=== PATIENT | female | born 1945 | race Caucasian/White ===

== ENCOUNTER 2016-05-22 20:58 | Inpatient (IN) | payer OTHER ==
--- NOTE | ~2016-05-22 | DS ---
Discharge Summary [facility] [address] [place]. [address] NAME: ASHLEIGH HERBERT : 47 STATUS : DIS IN PAT#: [id number] AGE: 71 ADM/REG DATE : 05/22/16 MR#: [id number] REPORT SERV DATE: 05/26/16 DICTATED BY: JEROMY MARROQUIN DATE: 05/25/16 REPORT STATUS : Draft TRANSCRIBED BY: MODL DATE: 05/25/16 ADMISSION DATE: 05/22/2016 DISCHARGE DATE: 05/25/2016 DISCHARGE DIAGNOSES: 1. Symptomatic bradycardia, improved after discontinuation of beta-fer and amiodarone. 2. History of atrial fibrillation. 3. Acute kidney injury. 4. Hyperkalemia, present on admission, resolved. 5. Pneumonia, initially suspected, but ruled out. CONSULTS: Cardiology. PROCEDURES AND IMAGING: Echocardiogram performed on 05/23/2016 showed normal LV systolic function of 50%. The patient did have a mild left ventricular diastolic dysfunction. The patient had normal right RV size and systolic function. HOSPITAL COURSE: This is a 71-year-old lady with history of AFib, who has been on beta- fer and amiodarone, who was brought to the ER with symptomatic bradycardia with heart rate in the 20s. For details, please refer to excellent H and P by Dr. Ramirez. In summary, the patient was admitted to [facility] and was very closely monitored. All medications that potentially exacerbate bradycardia was held and the patient actually did very well with the heart rate improving to 50s. The patient was seen and evaluated by Cardiology. The patient had a repeat echocardiogram with the findings as above. By the third day of the hospital stay as the patient's heart rate had improved and she was asymptomatic, Cardiology had cleared the patient for discharge. On another note, however, the patient did come in with an acute kidney injury with creatinine of 2.21. More importantly, the patient had persistent hyperkalemia with potassium of 5.4. Notably at home, the patient has been on Lasix as well as potassium replacement. The patient's potassium was as high as 5.9 on the third day of the hospital stay, and thus, discharge was held and the patient was given some IV fluid hydration. The patient's renal function had improved to a creatinine of 1.69 and the patient's potassium came down to 4.4 after a dose of Kayexalate. The patient is now being discharged home with close outpatient followup instructions. DISCHARGE MEDICATIONS: 1. Discontinued Coreg, amiodarone, Lasix and potassium. Otherwise, no changes to home medications. DISPOSITION: Home. FOLLOWUP: 1. Please follow up with PCP in the next one to two weeks. 2. Please follow up with Dr. Hemphill, her primary senior lead software engineer, in the next one to two weeks. A total of 25 minutes spent in coordinating this patient's discharge today. Discharge Summary [address] [address] NAME: ASHLEIGH HERBERT : 47 STATUS : DIS IN PAT#: [id number] AGE: 71 ADM/REG DATE : 05/22/16 MR#: [id number] REPORT SERV DATE: 05/26/16 DICTATED BY: JEROMY MARROQUIN DATE: 05/25/16 REPORT STATUS : Draft TRANSCRIBED BY: LEO DATE: 05/25/16 LUCAS/LEO Jeromy Marroquin MD / [id number] CC: Jeroym Marroquin MD
--- NOTE | ~2016-05-22 | HP ---
History And Physical [facility] [address] [place]. [address] NAME: ASHLEIGH HERBERT : 47 STATUS : ADM IN [facility]#: [id number] AGE: 71 ADM/REG DATE : 05/22/16 MR#: [id number] REPORT SERV DATE: 05/23/16 DICTATED BY: DOTTIE LI DATE: 05/23/16 REPORT STATUS : Draft TRANSCRIBED BY: MODMikala DATE: 05/23/16 DATE OF ADMISSION: 05/22/2016 CHIEF COMPLAINT: A 71-year-old female presenting with lightheadedness, shortness of breath, and initially severe bradycardia. HISTORY OF PRESENT ILLNESS: The patient's history was obtained through careful interview with the patient and son coupled with review of [facility] and [facility] medical records. The patient has had problems with congestive heart failure over the last six months or so. She describes being hospitalized at [facility] both in 12/2015 and in 03/2016. She has had to be on increasing doses of Lasix. She describes an increasing congestion and cough over the last two weeks. The cough is productive of a clear thick sputum. She has noticed no lower extremity edema. No orthopnea. She does describe shortness of breath characterized by dyspnea on exertion. Over this period of time with this "cold," she has lost her voice but has no sore throat. It is in this context that over the last several days she has developed lightheadedness and orthostatic symptoms and today these symptoms became quite severe. She was at home today and she had new onset nausea and felt as if she might vomit at any moment. When she called to have an ambulance check on her, the EMS crew noted that her pulse was sustaining in the 30s and was irregular; therefore, they called a helicopter to airlift patient to [facility]. Her blood pressure remains stable through all of this. She never lost consciousness. By the time she came here in the hospital, she had initial EKG with a pulse of 36 when atrial fibrillation. While she has been evaluated here in the emergency department, the patient has had improvement in her pulse gradually into the 40s and then finally into the 50s for a sustained period of two hours with less symptoms. Earlier in the evening, she did develop a mid chest discomfort, new onset heaviness. She had had one episode like this about four or five days ago that resolved spontaneously. She describes the heaviness pain in her chest to about 6 to 7/10 severity that eventually resolved by the time she came here to the hospital. She had one loose bowel movement on the day of admission, but no sustained diarrhea recently. No abdominal pain. REVIEW OF SYSTEMS: Otherwise, a 14-point review of systems was obtained and was negative. PAST MEDICAL HISTORY: 1. Coronary artery disease, status post stent placement. 2. Systolic congestive heart failure. Ejection fraction 35% to 40%. 3. Atrial fibrillation, on chronic Eliquis. 4. Pneumonia. 5. Stroke in 2011 with right occipital and left frontal region strokes. History And Physical [address] [address] NAME: ASHLEIGH HERBERT : 47 STATUS : ADM IN [facility]#: [id number] AGE: 71 ADM/REG DATE : 05/22/16 MR#: [id number] REPORT SERV DATE: 05/23/16 DICTATED BY: DOTTIE LI DATE: 05/23/16 REPORT STATUS : Draft TRANSCRIBED BY: LEO DATE: 05/23/16 6. Gout. PAST SURGICAL HISTORY: 1. Hernia repair. 2. Tubal ligation. ALLERGIES: MORPHINE, COMPAZINE, CODEINE, AND CLARITHROMYCIN. SOCIAL HISTORY: The patient has never been a smoker. Does not drink alcohol. She has been a since 2007. She lives in [place], [place]. 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 She has total of four sons. FAMILY HISTORY: Father with esophageal cancer, at 89 years of age. Mother with a myocardial infarction. First suffered in her 30s but at 69 years of age. Also had a brother with coronary artery disease in his 40s who at 55 years of age. Another brother with lung cancer. CURRENT MEDICATIONS: Include allopurinol 300 mg p.o. daily, amiodarone 200 mg p.o. daily, Norvasc 5 mg p.o. daily, Eliquis 5 mg p.o. b.i.d., eye drops, Coreg 25 mg p.o. b.i.d., iron supplement, Lasix 40 mg p.o. b.i.d., Toujeo 40 units subcutaneous twice a day, levothyroxine 50 mcg p.o. daily, potassium 10 mEq p.o. daily, Zocor 20 mg p.o. daily, and Diovan 160 mg p.o. daily. PHYSICAL EXAMINATION: VITAL SIGNS: Temperature 97.7, pulse initially 32, blood pressure 139/40, respiratory rate 18, and O2 saturation 95% on room air. GENERAL: A pleasant, cooperative female, in no evidence of distress at this time. HEENT: Pupils are equal, round, and reactive to light. No conjunctival pallor. No scleral icterus. Nares are patent. Oropharynx is clear of obstruction. Very dry mucous membranes with cracking of the lips and tongue. NECK: Trachea midline. No thyromegaly. LYMPH: No cervical lymphadenopathy. No supraclavicular lymphadenopathy. RESPIRATORY: The patient does have a quite extensive wheezes on exam with a "tight" exam in her upper airways with scattered upper respiratory rhonchi. No focal egophony. No dullness to percussion to suggest effusions. No wet rales. The patient has a labored respiratory effort. CARDIOVASCULAR: Bradycardic. Irregularly irregular. No murmurs, rubs, or gallops are appreciated. No extremity edema is appreciated. ABDOMEN: Soft, nontender, nondistended. Normal bowel sounds auscultated throughout. No hepatosplenomegaly. DERMATOLOGIC: Warm and dry extremities. No pallor, no cyanosis. PSYCHIATRIC: Normal affect. Good mood. Alert and oriented x3. LABORATORY DATA: Brain natriuretic peptide 344, troponin negative. INR 1.5. White blood cell count 10.1, hemoglobin 11, hematocrit 33, and platelets 240. Sodium 131, potassium 5.4, chloride 97, bicarb 24, BUN 98, creatinine 2.21 from a baseline creatinine of 1.0, History And Physical [id number] [place]. [address] NAME: ASHLEIGH HERBERT : 47 STATUS : ADM IN [facility]#: [id number] AGE: 71 ADM/REG DATE : 05/22/16 MR#: [id number] REPORT SERV DATE: 05/23/16 DICTATED BY: DOTTIE LI DATE: 05/23/16 REPORT STATUS : Draft TRANSCRIBED BY: MODL DATE: 05/23/16 glucose 117. STUDIES: 1. Chest x-ray by my own evaluation shows what may be some patchy pulmonary edema changes and cardiomegaly. 2. EKG by my own evaluation shows atrial fibrillation, pulse 36. There are no identifiable P waves. ASSESSMENT AND PLAN: 1. Symptomatic bradycardia. The initial atrial fibrillation in the 30s. Holding Coreg, holding amiodarone. I discussed the case with Dr. Coy, analytical chemistry teacher, who will consult, will admit the patient to the [facility]. 2. Acute kidney injury. Hold Lasix for now. Try IV fluids. Check albumin. Check renal ultrasound. Check urinalysis. 3. Acute bronchitis with a "tight" exam. Place on doxycycline, DuoNeb nebulizers, Solu- Medrol IV. 4. Cardiomegaly with history of congestive heart failure. Ejection fraction of 35% to 40%. Check an echocardiogram. Request recent records from [facility]. 5. Chronic atrial fibrillation. Check telemetry. Continue Eliquis. KPL/MODL Dottie Li M.D. / [id number] CC: Milind Caicedo D.O. Brian Negus, M.D.
--- NOTE | ~2016-05-22 | CN ---
Consultation Report [facility] [address] [place]. [address] NAME: ASHLEIGH GILLETTE : 47 STATUS : ADM IN [facility]#: [id number] AGE: 71 ADM/REG DATE : 05/22/16 MR#: [id number] REPORT SERV DATE: 05/23/16 DICTATED BY: BRISA VINSON DATE: 05/23/16 REPORT STATUS : Draft TRANSCRIBED BY: LEO DATE: 05/23/16 CARDIOLOGY CONSULTATION NOTE DATE OF CONSULTATION: 05/23/2016 CHIEF COMPLAINT: Nausea and vomiting. REASON FOR CONSULTATION: Bradycardia. SOURCE: The patient and her chart. HISTORY OF PRESENT ILLNESS: Ms Gillette is a very pleasant 71-year-old white woman with coronary artery disease and congestive heart failure as well as chronic kidney disease and paroxysmal atrial fibrillation. I last saw her in the office in November. Since then she has had weeks of sore throat, hoarseness. She finally got an antibiotic shot about four days ago. Since then, she has had nausea and vomiting yesterday and called EMS. She was noted to have heart rate of approximately 30 beats per minute and was airlifted to [facility]. She had some dizziness, but no actual syncope. She has not had any palpitations. She has had some shortness of breath. She has not had any chest pain, except for some heaviness. No swelling her urine output has been good. She has not had any bleeding. REVIEW OF SYSTEMS: All other systems are negative. ALLERGIES: INCLUDED COMPAZINE, MORPHINE, CODEINE, AND BIAXIN. MEDICATIONS: At home included allopurinol, amiodarone, amlodipine, apixaban, Lumigan, carvedilol, ferrous sulfate, furosemide, insulin, levothyroxine, potassium, simvastatin, timolol, and valsartan. PAST MEDICAL HISTORY: Significant for coronary artery disease, status post myocardial infarction, angioplasty, and stenting in 2011; chronic kidney disease, stage III; congestive heart failure with last LVEF of 45%, the most recent echo in 2014, diabetes, hypertension, hyperlipidemia. FAMILY HISTORY: Coronary artery disease, history of hyperkalemia, paroxysmal atrial fibrillation with CHADS2 score of 4 for congestive heart failure, hypertension, and previous stroke. She is on Eliquis anticoagulation, anemia, status post stroke at [facility] in 2010 which affected her vision. SOCIAL HISTORY: [place] 1[place]2 hours from [facility]. since 2007, 4 sons, never smoked. Denies alcohol. Lives in [place], [place]. Consultation Report [address] [place]. [address] NAME: ASHLEIGH GILLETTE : 47 STATUS : ADM IN [facility]#: [id number] AGE: 71 ADM/REG DATE : 05/22/16 MR#: [id number] REPORT SERV DATE: 05/23/16 DICTATED BY: BRISA VINSON DATE: 05/23/16 REPORT STATUS : Draft TRANSCRIBED BY: LEO DATE: 05/23/16 FAMILY HISTORY: Mother had myocardial infarction in her 30s, at age 69. Brother had coronary artery disease in his 40s and at age 55. ADDITIONAL PAST SURGICAL HISTORY: Abdominal hernia repair in , bilateral cataract surgery in 2010, and glaucoma. PHYSICAL EXAMINATION: GENERAL: She is a well-developed, well-nourished, elderly white woman, in no acute distress. VITAL SIGNS: The blood pressure is 141/67, pulse 50, temperature 98 degrees Fahrenheit, weight is 97 kg, height is 5 feet 4 inches. HEENT: Sclerae anicteric. Lips without cyanosis. Carotids are 2+ and symmetrical. No bruits. No JVD. No thyromegaly. LUNGS: Clear to auscultation. No use of accessory muscles. HEART: Regular rate and rhythm without murmur, gallop, or rub. ABDOMEN: Obese. Positive bowel sounds. Soft, nontender. EXTREMITIES: Upper right extremity, pulses are 2+ and symmetrical. No cyanosis, clubbing, or edema. BACK: No CVA tenderness. MUSCULOSKELETAL: Good tone. NEURO: Alert and oriented x3. STUDIES: EKG reveals the junctional bradycardia, low voltage QRS, nonspecific ST changes. Rate 36 beats per minute. The next EKG, sinus bradycardia with a first-degree AV block, rate 54, low voltage QRS. LABORATORY EXAMINATION: The chest x-ray, improving venous congestion compared to yesterday. The BNP level of 532.8. The sodium 135, potassium 5.3, chloride of 103, CO2 of 19, BUN 87, creatinine 1.91, and glucose 107. Troponin I of 0.02. The TSH 0.465, free T4 of 1.48. The white count of 9.9, hemoglobin 11.7, hematocrit 35.0, platelets 273,000. The INR 1.6, PTT of 33.1. The strep pneumonia antigen is negative. The Legionella antigen in urine not detected. Urinalysis, specific gravity 1.004, pH 5.0, dip negative. IMPRESSION: 1. Bradycardia, now improved with the discontinuance of beta blockers and amiodarone. 2. Acute kidney injury, on chronic kidney disease. 3. Paroxysmal atrial fibrillation. 4. Anticoagulated with Eliquis 5 mg b.i.d. dose. 5. Possible bronchitis. 6. Chronic systolic congestive heart failure with last left ventricular ejection fraction of 50% in December 2015. 7. Coronary artery disease, status post angioplasty and bare metal stenting of the right coronary artery in 2011, currently asymptomatic. No evidence of myocardial infarction by enzymes. Consultation Report [address] [address] NAME: ASHLEIGH GILLETTE : 47 STATUS : ADM IN PAT#: [id number] AGE: 71 ADM/REG DATE : 05/22/16 MR#: [id number] REPORT SERV DATE: 05/23/16 DICTATED BY: BRISA VINSON DATE: 05/23/16 REPORT STATUS : Draft TRANSCRIBED BY: LEO DATE: 05/23/16 RECOMMENDATIONS: 1. Observation on telemetry, off beta blockers and amiodarone. 2. Continue Eliquis. Consider dosage adjustment to 2.5 mg p.o. b.i.d., unless her renal function improves soon. 3. Echocardiogram for reassessment of left ventricular systolic function. 4. Treat bronchitis versus pneumonia. 5. Further recommendations following above. PRABHA/LEO Brisa Vinson M.D. / [id number] CC: Milind Caicedo D.O.
[2016-05-22 19:57] LABS: BASOPHILS 0.2 %; BASOPHILS ABSOLUTE 0.02 10/3/uL (0.0-0.16); EOSINOPHILS 4.2 %; EOSINOPHILS ABSOLUTE 0.42 10/3/uL (0.0-0.53); ER CBC TAT 0 Hrs 08 Mins; HEMATOCRIT 33.2 % (36.0-48.0); HEMOGLOBIN 10.8 g/dL (12.0-16.0); IMMATURE GRANULOCYTES 0.1 %; IMMATURE GRANULOCYTES ABSOLUTE 0.01 10/3/uL (0.0-0.11); LYMPHOCYTES 16.4 %; LYMPHOCYTES ABSOLUTE 1.65 10/3/uL (0.67-4.30); MANUAL DIFF NO %; MEAN CORPUS HGB CONC 32.5 g/dL (32.0-36.0); MEAN CORPUSCULAR HEMOGLOB 30.9 pg (26.0-34.0); MEAN CORPUSCULAR VOLUME 94.9 fL (80-100); MEAN PLATELET VOLUME 10.5 fL (9.2-13.0); MONOCYTES ABSOLUTE 0.71 10/3/uL (0.21-1.20); NEUTROPHILS 72.1 %; NEUTROPHILS ABSOLUTE 7.28 10/3/uL (2.02-8.40); PLATELET COUNT 240 10/3/uL (150-400); RBC DISTRIBUTION WIDTH 15.8 % (12.0-16.0); WHITE BLOOD CELLS 10.1 10/3/uL (4.5-10.5)
[2016-05-22 20:05] LABS: INTERNATIONAL NORMAL RATI 1.5 UNITS (-); PARTIAL THROMBO TIME 32.1 SEC (22.5-37.2); PROTIME (NOT ORD) 18.1 SEC (12.0-14.5)
[2016-05-22 20:14] LABS: BUN (BLOOD UREA NITROGEN) 98 MG/DL (6-23); CALCIUM, SERUM 8.5 MG/DL (8.5-10.4); CHEST PAIN PROFILE TAT 0 Hrs 25 Mins; CHLORIDE, SERUM 97 MMOL/L (96-112); CO2 (CARBON DIOXIDE) 24 MMOL/L (24-34); CREATININE 2.21 MG/DL (0.55-1.02); GFR AFRICAN AMERICAN 25 ML/MIN (>=60); GFR NON AFRICAN AMERICAN 22 ML/MIN (>=60); GLUCOSE, SERUM 117 MG/DL (60-99); POTASSIUM, SERUM 5.4 MMOL/L (3.5-5.3); SODIUM, SERUM 131 MMOL/L (135-148); TROPONIN I <0.02 NG/ML (<0.05)
[~2016-05-22 20:58] MED LIST: *UNABLE1; AGGRENOX PO; AMARYL4 PO; ASAB PO; ASABAYER PO; AVANDIA8 MG PO; BEN25 PO; CORDARONE PO; COREG12 PO; COREG25 PO; COREG6 PO; COZ50; DIOV160 PO; DIOVAN HC1 PO; DUONEB INH; ELIQUIS 5 MG TAB5 MG PO; FERROUS SULFATE; FLONASE NAS; GLUCPH PO; HUMULIN R1 ML SC; IRON325 MG PO; JANUMET1 TA1 PO; L20 PO; L40 PO; LEVAQUIN750 MG PO; LEVEMFLXPN SC; LEVEMFLXPN SQ; LEVOTHYROXIN100 MCG PO; LIPITOR40 PO; LOTE10; MAX1 IM; MELATONIN5 M1 PO; MUCINEX600 MG PO; NORV5 PO; NOVOPEN SC; NUIRONCAP PO; PR25 PO; PRILOSEC OTC20 MG PO; PRIN5 PO; SPIRO25 PO; T PO; TESS PO; THERGRANM PO; ULTRAM50 PO; X5 PO; XALAT OPH; Z300 PO; Z5 PO; ZANTAC150 MG PO; ZITH250 PO; ZOCOR20 PO; ZOFRAN2ML IV; [UNRECOGNIZED DRUG - CODE] IV; [UNRECOGNIZED DRUG - OTHER] PO; [UNRECOGNIZED DRUG - REMARK] OPH
[2016-05-22] MEDS ORDERED: TOUJEO SC (21:47)
[2016-05-22] MEDS ORDERED: ELIQUIS 5 MG TAB5 MG PO (21:47)
[2016-05-22] MEDS ORDERED: COREG25 PO (21:48)
[2016-05-22] MEDS ORDERED: Z300 PO (21:48)
[2016-05-22] MEDS ORDERED: FERROUS SULF325 M1 PO (21:48)
[2016-05-22] MEDS ORDERED: CORDARONE PO (21:48)
[2016-05-22] MEDS ORDERED: ZOCOR20 PO (21:49)
[2016-05-22] MEDS ORDERED: NORV5 PO (21:49)
[2016-05-22] MEDS ORDERED: L40 PO (21:49)
[2016-05-22] MEDS ORDERED: LEVOTHYROXIN50 MCG PO (21:50)
[2016-05-22] MEDS ORDERED: KLOR-CON 1010 MEQ PO (21:50)
[2016-05-22] MEDS ORDERED: DIOV160 PO (21:50)
[2016-05-22] MEDS ORDERED: TIMOLOL GEL0.5 % OPH (21:51)
[2016-05-22] MEDS ORDERED: LUMIGAN2.5 ML OPH (21:51)
[2016-05-23 03:26] LABS: ASCORBIC ACID (UR NOT ORDER) NEG (NEG); BILIRUBIN, URINE NEGATIVE (NEG); KETONE, URINE NEGATIVE (NEG); LEUKOCYTE ESTERASE(NOT OR NEG (NEG); WBC (NOT ORDERED) (RFLEX) < 1 (0-5)
[2016-05-23 04:38] LABS: BASOPHILS 0.1 %; BASOPHILS ABSOLUTE 0.01 10/3/uL (0.0-0.16); EOSINOPHILS 0.7 %; EOSINOPHILS ABSOLUTE 0.07 10/3/uL (0.0-0.53); HEMOGLOBIN 11.7 g/dL (12.0-16.0); IMMATURE GRANULOCYTES 0.1 %; IMMATURE GRANULOCYTES ABSOLUTE 0.01 10/3/uL (0.0-0.11); LYMPHOCYTES 10.2 %; LYMPHOCYTES ABSOLUTE 1.01 10/3/uL (0.67-4.30); MEAN CORPUS HGB CONC 33.4 g/dL (32.0-36.0); MEAN CORPUSCULAR HEMOGLOB 31.7 pg (26.0-34.0); MEAN CORPUSCULAR VOLUME 94.9 fL (80-100); MEAN PLATELET VOLUME 10.9 fL (9.2-13.0); MONOCYTES 0.5 %; MONOCYTES ABSOLUTE 0.05 10/3/uL (0.21-1.20); NEUTROPHILS 88.4 %; NEUTROPHILS ABSOLUTE 8.79 10/3/uL (2.02-8.40); PLATELET COUNT 273 10/3/uL (150-400); RBC DISTRIBUTION WIDTH 15.2 % (12.0-16.0); RED CELL COUNT 3.69 10/6/uL (4.0-5.6); WHITE BLOOD CELLS 9.9 10/3/uL (4.5-10.5)
[2016-05-23 04:40] LABS: MANUAL DIFF NO %
[2016-05-23 04:48] LABS: INTERNATIONAL NORMAL RATI 1.6 UNITS (-); PARTIAL THROMBO TIME 33.1 SEC (22.5-37.2); PROTIME (NOT ORD) 18.7 SEC (12.0-14.5)
[2016-05-23 05:15] LABS: B NATRIURETIC PEPTIDE (BNP) 532.8 PG/ML (< 100.0)
[2016-05-23 06:28] LABS: ALBUMIN 3.3 G/DL (3.5-5.0); ALKALINE PHOSPHATASE 124 U/L (45-117); CALCIUM, SERUM 9.2 MG/DL (8.5-10.4); CHLORIDE, SERUM 103 MMOL/L (96-112); CREATININE 1.91 MG/DL (0.55-1.02); FREE T4 1.48 NG/DL (0.76-1.46); GFR AFRICAN AMERICAN 30 ML/MIN (>=60); GFR NON AFRICAN AMERICAN 26 ML/MIN (>=60); GLUCOSE, SERUM 107 MG/DL (60-99); POTASSIUM, SERUM 5.3 MMOL/L (3.5-5.3); SGOT(AST) 43 U/L (5-40); SGPT(ALT) 59 U/L (5-65); SODIUM, SERUM 135 MMOL/L (135-148); TOTAL BILIRUBIN 0.3 MG/DL (0-1.2); TOTAL PROTEIN 7.9 G/DL (6.0-8.5); TROPONIN I 0.02 NG/ML (<0.05)
[2016-05-23 06:29] LABS: A/G RATIO 0.7 (0.7-1.9); BUN (BLOOD UREA NITROGEN) 87 MG/DL (6-23); CO2 (CARBON DIOXIDE) 19 MMOL/L (24-34); GLOBULIN 4.6 G/DL (2.5-4.1); ULTRASENSITIVE TSH 0.465 MCIU/ML (0.358-3.740)
[2016-05-23 07:31] LABS: GLYCOHEMOGLOBIN (HbA1c) 6.7 % (4.7-6.1)
[2016-05-24 06:43] LABS: BASOPHILS 0 %; EOSINOPHILS 0 %; HEMOGLOBIN 10.4 g/dL (12.0-16.0); IMMATURE GRANULOCYTES 0.2 %; IMMATURE GRANULOCYTES ABSOLUTE 0.02 10/3/uL (0.0-0.11); LYMPHOCYTES 9.9 %; LYMPHOCYTES ABSOLUTE 1.31 10/3/uL (0.67-4.30); MEAN CORPUS HGB CONC 33.1 g/dL (32.0-36.0); MEAN CORPUSCULAR HEMOGLOB 31.6 pg (26.0-34.0); MEAN CORPUSCULAR VOLUME 95.4 fL (80-100); MEAN PLATELET VOLUME 11.1 fL (9.2-13.0); MONOCYTES 4.5 %; NEUTROPHILS 85.4 %; PLATELET COUNT 272 10/3/uL (150-400); RBC DISTRIBUTION WIDTH 15.7 % (12.0-16.0); RED CELL COUNT 3.29 10/6/uL (4.0-5.6); WHITE BLOOD CELLS 13.2 10/3/uL (4.5-10.5)
[2016-05-24 06:46] LABS: CALCIUM, SERUM 9.1 MG/DL (8.5-10.4); CHLORIDE, SERUM 105 MMOL/L (96-112); CO2 (CARBON DIOXIDE) 22 MMOL/L (24-34); CREATININE 1.89 MG/DL (0.55-1.02); GFR AFRICAN AMERICAN 31 ML/MIN (>=60); GFR NON AFRICAN AMERICAN 26 ML/MIN (>=60); POTASSIUM, SERUM 5.8 MMOL/L (3.5-5.3); SODIUM, SERUM 139 MMOL/L (135-148)
[2016-05-24 06:48] LABS: BUN (BLOOD UREA NITROGEN) 79 MG/DL (6-23); GLUCOSE, SERUM 160 MG/DL (60-99)
[2016-05-24 06:50] LABS: HEMATOCRIT 31.4 % (36.0-48.0); MANUAL DIFF NO %
[2016-05-24 16:33] LABS: BUN (BLOOD UREA NITROGEN) 77 MG/DL (6-23); CALCIUM, SERUM 9.6 MG/DL (8.5-10.4); CHLORIDE, SERUM 104 MMOL/L (96-112); CO2 (CARBON DIOXIDE) 23 MMOL/L (24-34); CREATININE 1.93 MG/DL (0.55-1.02); GFR AFRICAN AMERICAN 30 ML/MIN (>=60); GFR NON AFRICAN AMERICAN 26 ML/MIN (>=60); POTASSIUM, SERUM 5.9 MMOL/L (3.5-5.3); SODIUM, SERUM 137 MMOL/L (135-148)
[2016-05-24 16:34] LABS: GLUCOSE, SERUM 123 MG/DL (60-99)
[2016-05-25 05:24] LABS: CHLORIDE, SERUM 104 MMOL/L (96-112); CO2 (CARBON DIOXIDE) 26 MMOL/L (24-34); CREATININE 1.69 MG/DL (0.55-1.02); GFR AFRICAN AMERICAN 35 ML/MIN (>=60); GFR NON AFRICAN AMERICAN 30 ML/MIN (>=60); SODIUM, SERUM 139 MMOL/L (135-148)
[2016-05-25 05:25] LABS: BUN (BLOOD UREA NITROGEN) 72 MG/DL (6-23); GLUCOSE, SERUM 76 MG/DL (60-99); POTASSIUM, SERUM 4.4 MMOL/L (3.5-5.3)
[2016-05-25 05:30] LABS: HEMATOCRIT 32.6 % (36.0-48.0); HEMOGLOBIN 10.8 g/dL (12.0-16.0); MEAN CORPUS HGB CONC 33.1 g/dL (32.0-36.0); MEAN CORPUSCULAR HEMOGLOB 32.1 pg (26.0-34.0); MEAN PLATELET VOLUME 10.7 fL (9.2-13.0); NUCLEATED RED BLOOD CELLS 0.2 /100WBC (0-0); PLATELET COUNT 295 10/3/uL (150-400); RED CELL COUNT 3.36 10/6/uL (4.0-5.6)
[2016-05-25 05:32] LABS: MANUAL DIFF YES %
[2016-05-25 06:18] LABS: BAND NEUTROPHILS 1 %; BASOPHILS 1 %; BASOPHILS ABSOLUTE (CALC) 0.13 10/3/uL (0.0-0.16); EOSINOPHILS 2 %; EOSINOPHILS ABSOLUTE (CALC) 0.26 10/3/uL (0.0-0.53); IMMATURE GRANS ABSOLUTE (CALC) 0.39 10/3/uL (0.0-0.11); LYMPHOCYTES 20 %; METAMYELOCYTES 2 %; MONOCYTES 5 %; MONOCYTES ABSOLUTE (CALC) 0.65 10/3/uL (0.21-1.20); MYELOCYTES 1 %; NEUTROPHILS ABSOLUTE (CALC) 8.97 10/3/uL (2.02-8.40); PLATELET ESTIMATE ADQ (ADEQUATE); RBC MORPHOLOGY NORM (NORMAL); SEGMENTED NEUTROPHIL (0) 68 %; TOTAL NUCLEATED CELLS 100
[2016-05-25 06:24] LABS: PROCALCITONIN <0.05 ng/mL (<0.5)
== END 2016-05-25 11:25 | disposition home or self-care (01) | DRG 309 ==
LOC: ER 20:58 → IMCU 21:32 → 5NO 05-24 16:14
PROVIDERS: Emergency Medicine; Internal Medicine
DX: R00.1 Bradycardia, unspecified (principal); N17.9 Acute kidney failure, unspecified; E11.22 Type 2 diabetes mellitus with diabetic chronic kidney disease; I13.0 Hypertensive heart and chronic kidney disease with heart failure and stage 1 through stage 4 chronic kidney disease, or unspecified chronic kidney disease; I50.22 Chronic systolic (congestive) heart failure; E87.5 Hyperkalemia; I48.0 Paroxysmal atrial fibrillation; I25.2 Old myocardial infarction; Z95.5 Presence of coronary angioplasty implant and graft; N18.3 Chronic kidney disease, stage 3 (moderate); Z79.4 Long term (current) use of insulin; T46.2X5A Adverse effect of other antidysrhythmic drugs, initial encounter; I25.10 Atherosclerotic heart disease of native coronary artery without angina pectoris; I69.398 Other sequelae of cerebral infarction; H53.9 Unspecified visual disturbance
CPT/HCPCS: 36600; 71010; 76775; 80048; 80053; 81001; 82330; 82803; 82947; 82962; 83036; 83735; 83880; 84132; 84145; 84295; 84439; 84443; 84484; 85014; 85025; 85610; 85730; 87449; 93005; 94640; 99291; A9270-GY; C8929; J2920; Q9957